=== PATIENT | male | born 1985 | race Caucasian/White ===

== ENCOUNTER → 2017-10-28 | Outpatient (CLI) | payer OTHER, MEDICAID ==
[2017-10-28 12:22] LABS: ANION GAP 8 MEQ/L (8-16); BLOOD UREA NITROGEN 10 MG/DL (7-18); CALCIUM LEVEL 8.7 MG/DL (8.5-10.1); CARBON DIOXIDE LEVEL 29 MEQ/L (21-32); CHLORIDE LEVEL 104 MEQ/L (98-107); CHOLESTEROL LEVEL 190 MG/DL (<200); CHOLESTEROL RISK RATIO 4.042 (<5); CREATININE FOR GFR 0.69 MG/DL (0.70-1.30); GLOMERULAR FILTRATION RATE > 60.0 (>60); GLUCOSE, FASTING 95 MG/DL (70-100); HDL CHOLESTEROL 47 MG/DL (>40); LDL CHOLESTEROL 119.2 MG/DL (<100); NON-HDL-C 143 MG/DL; POTASSIUM SERUM 4.1 MEQ/L (3.5-5.1); SODIUM LEVEL 141 MEQ/L (136-145); TRIGLYCERIDES LEVEL 119 MG/DL (<150)
== END ==
LOC: M LAB 10:52
DX: Z13.1 Encounter for screening for diabetes mellitus (principal); M79.671 Pain in right foot; M79.672 Pain in left foot; Z13.220 Encounter for screening for lipoid disorders
CPT/HCPCS: 73630

== ENCOUNTER → 2017-12-16 | Outpatient (REF) | payer OTHER, MEDICAID ==
[2017-12-16 15:45] LABS: APPEARANCE, URINE CLEAR (CLEAR); BACTERIA, URINE AUTO 1+ (NEGATIVE); BILIRUBIN, URINE AUTO NEGATIVE (NEGATIVE); BLOOD, URINE BLOOD NEGATIVE (NEGATIVE); COLOR, URINE YELLOW (YELLOW); GLUCOSE, URINE (UA) AUTO NEGATIVE (NEGATIVE); KETONE, URINE AUTO NEGATIVE (NEGATIVE); LEUKOCYTE ESTERASE, URINE AUTO NEGATIVE (NEGATIVE); NITRITE, URINE AUTO NEGATIVE (NEGATIVE); PROTEIN, URINE AUTO NEGATIVE (NEGATIVE); RBC, URINE AUTO 1 /HPF (0-3); SPECIFIC GRAVITY URINE AUTO 1.017 (1.002-1.035); SQUAMOUS EPITHELIAL CELL UR AU 0 /HPF (0-6); UROBILINOGEN, URINE AUTO 0.2 mg/dL (0.0-2.0); WBC, URINE AUTO 1 /HPF (0-3)
== END ==
LOC: M LAB REF 15:27
DX: I10 Essential (primary) hypertension (principal)

== ENCOUNTER → 2017-12-16 | Outpatient (CLI) | payer OTHER, MEDICAID | LOC: M LAB 14:55 | DX: I10 Essential (primary) hypertension (principal) ==

== ENCOUNTER → 2018-01-02 | Outpatient (CLI) | payer OTHER, MEDICAID ==
[2018-01-02 13:20] LABS: ANION GAP 10 MEQ/L (8-16); BLOOD UREA NITROGEN 12 MG/DL (7-18); CARBON DIOXIDE LEVEL 28 MEQ/L (21-32); CHLORIDE LEVEL 103 MEQ/L (98-107); CREATININE FOR GFR 0.73 MG/DL (0.70-1.30); GLOMERULAR FILTRATION RATE > 60.0 (>60); GLUCOSE, FASTING 113 MG/DL (70-100); POTASSIUM SERUM 3.7 MEQ/L (3.5-5.1); SODIUM LEVEL 141 MEQ/L (136-145)
== END ==
LOC: M LAB 12:29
DX: I10 Essential (primary) hypertension (principal)
CPT/HCPCS: 80048

== ENCOUNTER → 2018-01-15 | Outpatient (CLI) | payer OTHER, MEDICAID ==
[2018-01-15 12:04] LABS: ANION GAP 9 MEQ/L (8-16); BLOOD UREA NITROGEN 11 MG/DL (7-18); CALCIUM LEVEL 9.3 MG/DL (8.5-10.1); CARBON DIOXIDE LEVEL 31 MEQ/L (21-32); CHLORIDE LEVEL 100 MEQ/L (98-107); CREATININE FOR GFR 0.75 MG/DL (0.70-1.30); GLOMERULAR FILTRATION RATE > 60.0 (>60); GLUCOSE, FASTING 99 MG/DL (70-100); POTASSIUM SERUM 3.8 MEQ/L (3.5-5.1); SODIUM LEVEL 140 MEQ/L (136-145)
== END ==
LOC: M LAB 11:22
DX: I10 Essential (primary) hypertension (principal)
CPT/HCPCS: 80048

== ENCOUNTER → 2018-03-05 | Outpatient (CLI) | payer MEDICAID ==
[2018-03-05 13:07] LABS: ANION GAP 8 MEQ/L (8-16); BLOOD UREA NITROGEN 10 MG/DL (7-18); CARBON DIOXIDE LEVEL 27 MEQ/L (21-32); CHLORIDE LEVEL 105 MEQ/L (98-107); CREATININE FOR GFR 0.66 MG/DL (0.70-1.30); GLOMERULAR FILTRATION RATE > 60.0 (>60); GLUCOSE, FASTING 95 MG/DL (70-100); POTASSIUM SERUM 4.3 MEQ/L (3.5-5.1); SODIUM LEVEL 140 MEQ/L (136-145)
== END ==
LOC: M LAB 11:59
DX: I10 Essential (primary) hypertension (principal)
CPT/HCPCS: 80048

== ENCOUNTER → 2018-09-06 | Outpatient (CLI) | payer OTHER, MEDICAID ==
--- NOTE | 2018-09-11 14:23 | SLEEPHOME ---
DATE OF STUDY: 09/06/2018 INTERPRETATION: Diagnostic home sleep testing was performed due to concern for sleep apnea syndrome in this patient with symptoms of snoring and nonrestorative sleep. Portable home monitoring was performed using a NOX-T3 respiratory monitoring device. Continuous record was made of pulse, oxygen saturation, airflow, chest and abdominal strain. There was 368.3 minutes of data analyzed for presumed sleep. During the sleep interval, 343 respiratory events were identified of 10 secondary in duration or longer for a respiratory event index of 55.9. The events were obstructive apneas and hypopneas. There were a few mixed events present. The patient's baseline saturation was 88% with a minimum recorded value of 68%. 33% of the night was spent with saturations less than the 98th percentile and 16% were spent with saturations below 85%. The patient's baseline pulse was 83.8 beats per minute. His highest average pulse rate was 188 beats per minute. Testing was performed predominantly in the lateral position, though some supine sleep was available. IMPRESSION: Abnormal home sleep test with repetitive respiratory events. A respiratory event index of 55.9 is consistent with severe obstructive sleep apnea. He also had nocturnal hypoxemia with significant desaturations. RECOMMENDATIONS: Recommend the patient be sent to the sleep disorder center for formal determine of pressure therapy given the severity of his disease and the extent of his desaturations.
== END ==
LOC: M SLEEP HO 14:32
PROVIDERS: ATTEND Internal Medicine Pulmonary Disease
DX: R09.02 Hypoxemia (principal); R06.83 Snoring

== ENCOUNTER → 2018-09-07 | Outpatient (REF) | payer OTHER, MEDICAID | LOC: M SFHCLERA 20:03 | PROVIDERS: ATTEND Nurse Practitioner Family | DX: J02.9 Acute pharyngitis, unspecified (principal) ==

== ENCOUNTER → 2019-01-15 | Outpatient (CLI) | payer OTHER, MEDICAID | LOC: M SLEEP 19:29 | PROVIDERS: ATTEND Internal Medicine Pulmonary Disease | DX: G47.33 Obstructive sleep apnea (adult) (pediatric) (principal) ==